=== PATIENT | male | born 1965 | race Caucasian/White ===

== ENCOUNTER 2016-12-30 09:03 | Emergency (ER) | payer SELFPAY ==
[2016-12-30 09:11] VITALS: BP 153/108
--- NOTE | 2016-12-30 10:48 | Emergency Department Report ---
Entered by LEON MATUTE, acting as scribe for SHANE RICHEY FNP. - General Chief Complaint: Wound/Laceration Stated Complaint: HEAD INJURY Time Seen by Provider: 12/30/16 10:08 Source: patient Mode of arrival: Ambulatory Limitations: No Limitations - History of Present Illness Initial Comments: 51 y/o male presents to the ED c/o laceration to forehead that occurred this morning at 7:45 am. Associated symptoms include pain but he denies headache, LOC , nausea and vomiting. Patient was fixing a truck tire at work when it flew off and hit him in the head. No alleviating or aggravating factors. NKDA. TDAP UTD. Patient preferred not to be sutured. -: This morning (7:45) Location: face (forehead) Place: work Patient Tetanus UTD: Yes Context: accidental Associated Symptoms: pain. denies: nausea/vomiting, other (LOC, headache) - Related Data Previous Rx's Medication Instructions Recorded Last Taken Type Cephalexin [Keflex] 500 mg PO Q12HR #14 cap 12/30/16 Unknown Rx Allergies Allergy/AdvReac Type Severity Reaction Status Date / Time No Known Allergies Allergy Unverified 12/30/16 09:11 ED Review of Systems Comment: All other systems reviewed and negative Constitutional: denies: chills, fever Eyes: denies: eye pain, eye discharge, vision change ENT: denies: ear pain, throat pain Respiratory: denies: cough, shortness of breath, wheezing Cardiovascular: denies: chest pain, palpitations Endocrine: no symptoms reported Gastrointestinal: denies: nausea, vomiting Genitourinary: denies: urgency, dysuria Musculoskeletal: denies: back pain, joint swelling, arthralgia Skin: other (pain, laceration to forehead) Neurological: denies: headache, other (LOC) Psychiatric: denies: anxiety, depression Hematological/Lymphatic: denies: easy bleeding, easy bruising ED Past Medical Hx - Past Medical History Previous Medical History?: No - Surgical History Past Surgical History?: No - Social History Smoking Status: Unknown if ever smoked Substance Use Type: Alcohol - Medications Home Medications: Home Medications Medication Instructions Recorded Confirmed Last Taken Type Cephalexin [Keflex] 500 mg PO Q12HR #14 cap 12/30/16 Unknown Rx ED Physical Exam - General Limitations: No Limitations General appearance: alert, in no apparent distress - Head Head exam: Present: atraumatic, normocephalic, normal inspection - Eye Eye exam: Present: normal appearance - ENT ENT exam: Present: mucous membranes moist - Neck Neck exam: Present: normal inspection - Respiratory Respiratory exam: Present: normal lung sounds bilaterally. Absent: respiratory distress - Cardiovascular Cardiovascular Exam: Present: regular rate, normal rhythm, normal heart sounds. Absent: systolic murmur, diastolic murmur, rubs, gallop - GI/Abdominal GI/Abdominal exam: Present: soft, normal bowel sounds - Extremities Exam Extremities exam: Present: normal inspection - Back Exam Back exam: Present: normal inspection - Neurological Exam Neurological exam: Present: alert, oriented X3 - Psychiatric Psychiatric exam: Present: normal affect, normal mood - Skin Skin exam: Present: warm, dry, normal color, other (2cm laceration to forehead) . Absent: rash ED Course Vital Signs 12/30/16 09:07 Temperature 98.2 F Pulse Rate 98 H Blood Pressure 153/108 O2 Sat by Pulse 98 Oximetry - Laceration /Wound Repair Frontal Wound Location: head Wound Length (cm): 2 Wound's Depth, Shape: superficial Wound Explored: clean Betadine Prep?: Yes (30) Wound Debrided: minimal Wound Repaired With: Steri-strips, Dermabond ED Medical Decision Making - Medical Decision Making Wound laceration to forehead .2cm s superficial laceration noted Dermabond . ED Disposition Clinical Impression: Laceration Disposition: DC-01 TO HOME OR SELFCARE Is pt being admited?: No Does the pt Need Aspirin: No Condition: Stable Instructions: Skin Adhesive Care (ED), Laceration (ED) Prescriptions: Cephalexin [Keflex] 500 mg PO Q12HR #14 cap Referrals: PRIMARY CARE, [Primary Care Provider] - 3-5 Days [facility] [Outside] - 3-5 Days Time of Disposition: 10:48 This documentation as recorded by the JUJU lozoya ELIZABETH,accurately reflects the service I personally performed and the decisions made by ROSSI lemus DENETRA L, FNP.
== END 2016-12-30 13:15 | disposition home or self-care (01) ==
LOC: ED 09:03
DX: S01.81XA Laceration without foreign body of other part of head, initial encounter (principal); W20.8XXA Other cause of strike by thrown, projected or falling object, initial encounter; Y93.89 Activity, other specified; Y99.8 Other external cause status; Y92.89 Other specified places as the place of occurrence of the external cause